=== PATIENT | male | born 1995 | race Caucasian/White ===

== ENCOUNTER 2017-03-11 09:49 | Emergency (ER) | payer MEDICAID ==
[~2017-03-11] VITALS: Ht 182.9 cm; Wt 93.4 kg
[~2017-03-11 09:49] MED LIST: OMEPRAZOLE20 MG PO; ZOFRAN ODT8 MG PO
[2017-03-11] MEDS ORDERED: GABAPENTIN300 MG PO (10:13)
[2017-03-11] MEDS ORDERED: ROBAXIN-750750 MG PO ×2 (10:13→10:17)
[2017-03-11] MEDS ORDERED: PERCOCET 5-3251 EACH PO (10:14)
== END 2017-03-11 10:30 | disposition home or self-care (01) ==
LOC: ED 09:49
DX: S22.9XXA Fracture of bony thorax, part unspecified, initial encounter for closed fracture (principal); F17.200 Nicotine dependence, unspecified, uncomplicated; Z79.899 Other long term (current) drug therapy; V89.2XXA Person injured in unspecified motor-vehicle accident, traffic, initial encounter
CPT/HCPCS: 99283

== ENCOUNTER 2017-07-15 11:48 | Emergency (ER) | payer MEDICAID ==
[~2017-07-15] VITALS: Ht 182.9 cm; Wt 93.4 kg
[~2017-07-15 11:48] MED LIST changes: +GABAPENTIN300 MG PO; +PERCOCET 5-3251 EACH PO; +ROBAXIN-750750 MG PO
[2017-07-15] MEDS ORDERED: NORCO 5-325 TA1 EACH PO (13:51)
== END 2017-07-15 15:33 | disposition home or self-care (01) ==
LOC: ED 11:48
DX: R07.89 Other chest pain (principal); F17.200 Nicotine dependence, unspecified, uncomplicated
CPT/HCPCS: 71045; 71046; 96372; 99283; J1170

== ENCOUNTER 2017-10-31 04:59 | Emergency (ER) | payer OTHER ==
[~2017-10-31] VITALS: Ht 180.3 cm; Wt 74.4 kg
[~2017-10-31 04:59] MED LIST changes: +NORCO 5-325 TA1 EACH PO
[2017-10-31] MEDS ORDERED: CEPHALEXIN500 MG PO (05:33)
[2017-10-31] MEDS ORDERED: ACETAMINOPHEN-1 EAC1 PO (05:33)
== END 2017-10-31 05:52 | disposition home or self-care (01) ==
LOC: ED 04:59
DX: K08.89 Other specified disorders of teeth and supporting structures (principal); F17.200 Nicotine dependence, unspecified, uncomplicated
CPT/HCPCS: 99283

== ENCOUNTER 2018-04-30 17:06 | Emergency (ER) | payer OTHER ==
[~2018-04-30] VITALS: Ht 180.3 cm; Wt 74.4 kg
[~2018-04-30 17:06] MED LIST changes: +ACETAMINOPHEN-1 EAC1 PO; +CEPHALEXIN500 MG PO; +NEURONTIN300 MG PO
--- OUTSIDE RECORDS SUMMARY | 2018-04-30 17:12 | XMS ---
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 Elmer has no Care Guidelines for this patient. Caroline VISIT COUNT (12 MO.) [facility] MOLLY [facility] TOTAL 5 NOTE: Visits indicate total known visits. 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 [place] TYPE: Emergency COMPLAINT: - FACIAL SWELLING DIAGNOSES: - OTHER SPECIFIED DISORDERS OF TEETH AND SUPPORTING - Nicotine dependence, unspecified, uncomplicated - Other specified disorders of teeth and supporting structures - Localized swelling, mass and lump, head 07/15/2017 11:[address] [facility] [place] TYPE: Emergency COMPLAINT: - CHEST PAIN DIAGNOSES: - Other chest pain - Chest pain, unspecified - Nicotine dependence, unspecified, uncomplicated [facility]2017 [facility] COMPLAINT: - Other - PAIN IN LEFT LEG DIAGNOSES: 0. Pain in left leg 1. Contusion of left lower leg, initial encounter 3. Nicotine dependence, cigarettes, uncomplicated 4. Cannabis use, unspecified, uncomplicated INPATIENT VISIT TRACKING (12 MO.) No inpatient visits to display in this time frame [email or web address]
== END 2018-04-30 17:30 | disposition home or self-care (01) ==
LOC: ED 17:06
DX: M79.671 Pain in right foot (principal)

== ENCOUNTER 2018-12-22 13:58 | Emergency (ER) | payer OTHER ==
[~2018-12-22] VITALS: Ht 180.3 cm; Wt 74.4 kg
--- OUTSIDE RECORDS SUMMARY | 2018-12-22 14:00 | XMS ---
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 Elmer has no Care Guidelines for this patient. Care History Medical/Surgical 05/01/2018 [facility] Care Recommendation: - Patient DOES NOT have a PCP. - Please refer patient to [facility] - - NO PCP letter sent to patient and phone call. - NEED UPDATED PHONE NUMBER FOR CONTACT This patient has had 5 or more Emergency Department visits in the last 12 months.\T\nbsp; Patient requires education on the scope and purpose of the ED as an acute care provider not a Primary Care Provider and should not be utilized for chronic conditions.\T\ nbsp; If patient returns to ED please contact Community Health WorkerBrittany at [phone]. These are guidelines and the provider should exercise clinical judgment when providing care. E.D. VISIT COUNT (12 MO.) 2 [facility] TOTAL 2 NOTE: Visits indicate total known visits. ED/UCC VISIT TRACKING (12 MO.) 12/22/2018 13:58 [facility] [place] TYPE: Emergency COMPLAINT: - CUT HAND 04/30/2018 17:07 [facility] [place] TYPE: Emergency COMPLAINT: - R FOOT PAIN/INJURY DIAGNOSES: - Pain in right foot INPATIENT VISIT TRACKING (12 MO.) No inpatient visits to display in this time frame [id number]
== END 2018-12-22 15:51 | disposition home or self-care (01) ==
LOC: ED 13:58
PROC: 0HQFXZZ Repair Right Hand Skin, External Approach (ICD-10-PCS; principal; 2018-12-22)
DX: S66.320A Laceration of extensor muscle, fascia and tendon of right index finger at wrist and hand level, initial encounter (principal); F17.200 Nicotine dependence, unspecified, uncomplicated; W25.XXXA Contact with sharp glass, initial encounter
CPT/HCPCS: 12002; 90471; 90715; 99283-25; 99406

== ENCOUNTER 2019-01-01 10:50 | Day surgery (SDC) | payer OTHER ==
[~2019-01-01] VITALS: Ht 180.3 cm; Wt 74.4 kg
[~2019-01-01 10:50] MED LIST changes: +MOBIC15 MG PO
--- NOTE | 2019-01-01 13:54 | NUR ---
01/01/19 1354 Fanny Arias 1346 PATIENT ARRIVES TO PACU SLEEPING, BUT AWAKENS WITH VERBAL STIMULI. ANSWERS QUESTIONS APPROPRIATELY, DENIES PAIN OR NAUSEA. ONLY C/O ARM FEELS "TINGLING." RESP EVEN AND UNLABORED, ROOM AIR SATS >95%.
[2019-01-01] MEDS ORDERED: HYDROCODON-ACE1 EA11 PO (13:59)
--- NOTE | 2019-01-04 06:59 | OR ---
[facility] [address], [place] [address] Signed DATE OF OPERATION: 01/01/2019 SURGEON: Jack Marrero MD PREOPERATIVE DIAGNOSIS: Extensor laceration, right hand. POSTOPERATIVE DIAGNOSES: Extensor laceration, right hand, with complete lacerations of the extensor digitorum communis and extensor indicis right hand. PROCEDURE PERFORMED: Repair of extensor digitorum communis and extensor indicis right hand. TEST DECK SUPERVISOR: None. ANESTHESIA: MAC with local. TOURNIQUET TIME: 50 minutes. BRIEF HISTORY: Zaid is a 23-year-old gentleman, who put his hand through a screen door glass and cut the backside. This was explored and repaired in the ER. There was thought to be a partial laceration; however, he had about a 30 degree extensor lag. Risks and benefits of exploration and repair were discussed with him and he elected to proceed. DESCRIPTION OF PROCEDURE: Once consent was obtained, he was taken to the operating room. After adequate anesthesia, he was placed on operating room table. A well-padded proximal arm tourniquet was placed. The arm was prepped and draped in a standard sterile fashion, exsanguinated using Esmarch bandage. Tourniquet inflated to 200 mmHg. The initial laceration was opened up and the cut ends of the two distal portions of the tendons were easily identifiable. The extensor indicis was found proximally quite quickly. However, the extensor digitorum communis we had trouble finding. Using a tendon retriever, we reached up the canal and unable to retrieve it. We then made another incision proximally and found the tendon and brought it back through in its proper position. Both tendons were then repaired using a modified Todd stitch with 4-0 suture. A six Electronically Signed By: JACK MARRERO MD 01/04/19 0659 PATIENT NAME: ZAID GAXIOLA OPERATIVE REPORT DATE OF : 89 REPORT #: [id number] PHYSICIAN: JACK MARRERO MD PCP: PHILIP MCDONOUGH DO REPORT IS CONFIDENTIAL AND NOT TO BE RELEASED WITHOUT AUTHORIZATION [facility] [address], [place] [address] Signed strand repair was done on both and then a running paratenon with 5-0 nylon was done. The tendons were independently active and intact. There was no gaping. Wounds were then copiously irrigated with antibiotic solution, closed with 3-0 Monocryl for the extensor retinaculum, and 3-0 nylon for the skin. Wounds were dressed with bacitracin, Adaptic, 4 x 8s, and gauze. Field blocks with 8 mL of 0.25% plain Marcaine were placed prior to this. The wounds were then dressed with sterile cast padding and two digit extensor splint with plaster. He tolerated the procedure well. All sponge, needle, and instrument counts were correct. Jack Marrero MD BA/EDYTA /[id number] Copies: ~ Electronically Signed By: JACK MARRERO MD 01/04/19 0659 PATIENT NAME: KHALIDAZAID OPERATIVE REPORT DATE OF : [birth year] REPORT #: [id number] PHYSICIAN: JACK MARRERO MD PCP: PHILIP MCDONOUGH DO REPORT IS CONFIDENTIAL AND NOT TO BE RELEASED WITHOUT AUTHORIZATION
== END 2019-01-01 14:25 | disposition home or self-care (01) ==
LOC: DS 10:50 → OPS 10:50 → DS 13:15 → OPS 13:15
PROVIDERS: Specialist
PROC: 0LQ70ZZ Repair Right Hand Tendon, Open Approach (ICD-10-PCS; principal; 2019-01-01 13:15)
DX: S66.320A Laceration of extensor muscle, fascia and tendon of right index finger at wrist and hand level, initial encounter (principal); F17.210 Nicotine dependence, cigarettes, uncomplicated; F12.90 Cannabis use, unspecified, uncomplicated; Z79.899 Other long term (current) drug therapy; W25.XXXA Contact with sharp glass, initial encounter
CPT/HCPCS: 01830; J0690; J2704; J3010; J7120

== ENCOUNTER 2019-09-21 21:18 | Emergency (ER) | payer OTHER ==
[~2019-09-21] VITALS: Ht 180.3 cm; Wt 77.1 kg
--- OUTSIDE RECORDS SUMMARY | ~2019-09-21 | XMS | Clinical Summary ---
Demographics + + + | Address | [address] | | | [place] [address] | + + + | Home Phone | | + + + | Preferred Language | Unknown | + + + | Marital Status | Single | + + + | Bahai Affiliation | Unknown | + + + | Race | Unknown | + + + | Ethnic Group | Unknown | + + + Author + + + | Author | [facility] | | | and [place] | + + + | Organization | [facility] | | | and [place] | + + + | Address | Unknown | + + + | Phone | Unavailable | + + + Support + + + + + | Name | Relationship | Address | Phone | + + + + + | Cheko Simmons | ECON | [address] | | | | | [place] | | | | | [phone] | | + + + + + Care Team Providers + +------+ + | Care Corrugated Sheet Material Sheeter Name | Role | Phone | + +------+ + | Sigifredo Pascual DO | PCP | | + +------+ + Allergies No Known Allergies Medications + + + +---------+------+------+-------+ | Medication | Sig | Dispensed | Refills | Star | End | Statu | | | | | | t | Date | s | | | | | | Date | | | + + + +---------+------+------+-------+ | meloxicam (MOBIC) | Take 15 mg by mouth | | 0 | 08/1 | | Activ | | 15 mg tablet | Daily. | | | 4/20 | | e | | | | | | 19 | | | + + + +---------+------+------+-------+ | methocarbamol | Take 1-2 tablets by | | 0 | 02/0 | | Activ | | (ROBAXIN) 750 mg | mouth every 4 hours | | | 4/20 | | e | | tablet | as needed. | | | 19 | | | + + + +---------+------+------+-------+ | varenicline | Take 0.5 mg by mouth | 1 | 0 | 09/0 | | Activ | | (CHANTIX STARTING | once daily on days | tablet | | 5/20 | | e | | MONTH ISAAC) 0.5 MG X | 1-3 and 0.5 mg twice | | | 19 | | | | 11 & 1 MG X 42 | daily on days 4-7, | | | | | | | tablet | then 1 mg twice | | | | | | | | daily. | | | | | | + + + +---------+------+------+-------+ Active Problems No known active problems Family History + + +------+ + | Medical History | Relation | Name | Comments | + + +------+ + | No known problems | Father | | | + + +------+ + | No known problems | Mother | | | + + +------+ + | Cancer | Other | | | + + +------+ + | Diabetes | Other | | | + + +------+ + + +------+--------+ + | Relation | Name | Status | Comments | + +------+--------+ + | Father | | Alive | | + +------+--------+ + | Mother | | Alive | | + +------+--------+ + | Other | | | Grandfather | + +------+--------+ + Social History + +-------+ +--------+------+ | Tobacco Use | Types | Packs/Day | Years | Date | | | | | Used | | + +-------+ +--------+------+ | Current Every Day | | 0.5 | 7 | | | Smoker | | | | | + +-------+ +--------+------+ + +---+---+---+ | Smokeless Tobacco: | | | | | Never Used | | | | + +---+---+---+ + + +---------+ + | Alcohol Use | Drinks/Week | oz/Week | Comments | + + +---------+ + | Not Currently | | | | + + +---------+ + + + + | Sex Assigned at | Date Recorded | | | | + + + | Not on file | | + + + + + + + | Job Start Date | Occupation | Industry | + + + + | Not on file | Not on file | Not on file | + + + + + + + + | Travel History | Travel Start | Travel End | + + + + + + | No recent travel history available. | + + Last Filed Vital Signs + + + + + | Vital Sign | Reading | Time Taken | Comments | + + + + + | Blood Pressure | 130/86 | 12/31/2018 11:12 AM | | | | | PDT | | + + + + + | Pulse | 72 | 12/31/2018 11:12 AM | | | | | PDT | | + + + + + | Temperature | - | - | | + + + + + | Respiratory Rate | 16 | 12/31/2018 11:12 AM | | | | | PDT | | + + + + + | Oxygen Saturation | - | - | | + + + + + | Inhaled Oxygen | - | - | | | Concentration | | | | + + + + + | Weight | 74.8 kg (165 lb) | 12/31/2018 11:12 AM | | | | | PDT | | + + + + + | Height | 180.3 cm (5' 11") | 12/31/2018 11:12 AM | | | | | PDT | | + + + + + | Body Mass Index | 23.01 | 12/31/2018 11:12 AM | | | | | PDT | | + + + + + Plan of Treatment + + + + + | Health Maintenance | Due Date | Last Done | Comments | + + + + + | Vaccine: | | | | | Pneumococcal 19-64 | 1 | | | | (1 of 1 - PPSV23) | | | | + + + + + | Vaccine: Influenza | | | | | (Season Ended) | 0 | | | + + + + + | Vaccine: | | 12/22/2018, 06/04/2011, | | | Dtap/Tdap/Td (9 - | 9 | 05/30/2008, Additional history | | | Td) | | exists | | + + + + + Results Not on filefrom Last 3 Months Insurance + +--------+ +--------+ +---------+--------+ | Payer | Benefi | Subscriber | Effect | Phone | Address | Type | | | t Plan | ID | marquise | | | | | | / | | Dates | | | | | | Group | | | | | | + +--------+ +--------+ +---------+--------+ | [employer] | [employer] | [id number] | 07/28/19 | [phone] | | Medica | | MEDICAID HMO | HEALTH | | 19-Pre | 1 | | id | | | MDCD | | sent | | | | | | [place]MO [place] | | | | | | + +--------+ +--------+ +---------+--------+ + +--------+ +--------+ + + | Guarantor Name | Accoun | Relation to | Date | Phone | Billing Address | | | t Type | Patient | of | | | | | | | | | | + +--------+ +--------+ + + | Pelon Simmons | Person | Self [birth year] | [address] | | | al/Fam | | 1995 | [phone] | [place] [address] | | | penny | | | 9 (Home) | | + +--------+ +--------+ + + Advance Directives + + + + + | Type | Date Recorded | Patient | Explanation | | | | Hourly Team Members | | + + + + + | Power of | | | | | Biomedical Engineering Technician | | | | + + + + + | Advance | | | | | Directive | | | | + + + + +
--- OUTSIDE RECORDS SUMMARY | ~2019-09-21 | XMS | Encounter Summary ---
Demographics + + + | Address | [address] | | | [place] [address] | + + + | Home Phone | | + + + | Preferred Language | Unknown | + + + | Marital Status | Single | + + + | Church Affiliation | Unknown | + + + | Race | Unknown | + + + | Ethnic Group | Unknown | + + + Author + + + | Author | [facility] | | | and [place] | + + + | Organization | [facility] | | | and [place] | + + + | Address | Unknown | + + + | Phone | Unavailable | + + + Support + + + + + | Name | Relationship | Address | Phone | + + + + + | Cheko Simmons | ECON | [address] | | | | | [place] | | | | | [phone] | | + + + + + Care Team Providers + +------+ + | Care Customer Services Coordinator Name | Role | Phone | + +------+ + PCP | Unavailable | + +------+ + Encounter Details +--------+ + + + + | Date | Type | Department | Care Team | Description | +--------+ + + + + | 11/10/ | Emergency | [facility] | Ray Remy, | [facility] | | 2002 - | | [facility] | [phone] | | | | | [facility] | [place], | | | 11/11/ | | [address] | [place] [address] | | | 2002 | | [place], [place] | [phone] | | | | | [address] | | | | | | [phone] | | | +--------+ + + + + Social History + +-------+ +--------+------+ | Tobacco Use | Types | Packs/Day | Years | Date | | | | | Used | | + +-------+ +--------+------+ | Never Assessed | | | | | + +-------+ +--------+------+ + + + | Sex Assigned at [...] recent travel history available. | + + documented as of this encounter Plan of Treatment Not on filedocumented as of this encounter Visit Diagnoses + + | Diagnosis | + + | Headache(784.0) Headache | + + documented in this encounter"
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
--- OUTSIDE RECORDS SUMMARY | ~2019-09-21 | XMS | Encounter Summary ---
Demographics + + + | Address | [address] | | | [place] [address] | + + + | Home Phone | | + + + | Preferred Language | Unknown | + + + | Marital Status | Single | + + + | Confucianist Affiliation | Unknown | + + + | Race | Unknown | + + + | Ethnic Group | Unknown | + + + Author + + + | Author | [facility] | | | and [place] | + + + | Organization | [facility] | | | and [...] [place] | | | | | [address] | | + + + + + Care Team Providers + +------+ + | Care Collision Worker Name | Role | Phone | + [...] Александр ROJAS | | | | | [address] | [place] [address] | | | | | [place] [address] | | | | | | [phone] | | | +--------+ + + + [...]
--- OUTSIDE RECORDS SUMMARY | ~2019-09-21 | XMS | Encounter Summary ---
Demographics + + + | Address | [address] | | | [place] [address] | + + + | Home Phone | | + + + | Preferred Language | Unknown | + + + | Marital Status | Single | + + + | Orthodoxy Affiliation | Unknown | + + + | Race | Unknown | + + + | Ethnic Group | Unknown | + + + Author + + + | Author | [facility] | | | and [place] | + + + | Organization | [facility] | | | and [place] [...] [place] | | | | | [address] | | + + + + + Care Team Providers + +------+ + | Care Apartment Maintenance Supervisor Name | Role | Phone | + +------+ + | Brett Lewis MD | PCP | | + +------+ + Encounter Details +--------+ + + + + | Date | Type | Department | Care Team | Description | +--------+ + + + + | 12/14/ | Abstract | [facility] | Provider, | | | 2018 | | [address]YSIATRY [address] | [address] | | | | | [address] | Александр Brandt. BOB | | | | | [place] | [place] [address] | | | | | [address] | | | | | | [phone] | | | +--------+ + + + + Social History + +-------+ +--------+------+ | Tobacco Use | Types | Packs/Day | Years | Date | | | | | Used | | + +-------+ +--------+------+ | Never Smoker | | | | | + [...] filedocumented as of this encounter Visit Diagnoses Not on filedocumented in this encounter"
--- OUTSIDE RECORDS SUMMARY | ~2019-09-21 | XMS | Encounter Summary ---
Demographics + + + | Address | [address] | | | [place] [address] | + + + | Home Phone | | + + + | Preferred Language | Unknown | + + + | Marital Status | Single | + + + | Yazdanism Affiliation | Unknown | + + + | Race | Unknown | + + + | Ethnic Group | Unknown | + + + Author + + + | Author | [facility] | | | and [place] | + + + | Organization | [facility] | | | and [place] | + + + | Address | Unknown | + + + | Phone | Unavailable | + + + Support + + + + + | Name | Relationship | Address | Phone | + + + + + | Cheko Simmons | ECON | [address] | | | | | [place], [place] | | | | | [address] | | + + + + + Care Team Providers + +------+ + | Care Small Stock Facer Name | Role | Phone | + +------+ + PCP | Unavailable | + +------+ + Encounter Details +--------+ + + + + | Date | Type | Department | Care Team | Description | +--------+ + + + + | 01/14/ | Hospital | [facility] | Reena, | Single liveborn, | | 1994 - | Encounter | MEDICAL CENTER NICU | [address] | born in hospital, | | | | [address] | [address] [place], [place] | delivered without | | 01/[birth year]/ | | [place], [place] | [address] | mention of | | 1994 | | [address] | | delivery | | | | [phone] | | | +--------+ + + + [...] + | Diagnosis | + + | Single liveborn, born in hospital, delivered without mention of delivery | + + documented in this encounter"
--- OUTSIDE RECORDS SUMMARY | ~2019-09-21 | XMS | Encounter Summary ---
Demographics + + + | Address | [address] | | | [place] [address] | + + + | Home Phone | | + + + | Preferred Language | Unknown | + + + | Marital Status | Single | + + + | Synagogue Affiliation | Unknown | + + + | Race | Unknown | + + + | Ethnic Group | Unknown | + + + Author + + + | Author | [facility] | | | and [place] | + + + | Organization | [facility] | | | and [place] [...] [place] | | | | | [address] | | + + + + + Care Team Providers + +------+ + | Care Senior Boiler Operator Name | Role | Phone | + +------+ + | Sigifredo Pascual DO | PCP | | + +------+ + Encounter Details +--------+ + + + + | Date | Type | Department | Care Team | Description | +--------+ + + + + | 12/31/ | Hospital | [facility] | Eugenie Salazar | Spondylolisthesis at | | 2019 | Encounter | MED CTR XRAY [address] | [address] | L5-S1 level | | | | [place] | [facility] | | | | | [place] [address] | [address] [place] | | | | | [phone] | [address] | | | | | | | [...] + + | Performing | Address | City/State[facility] | Phone Number | | Organization | | | | + +---------+ + + | [facility] | | | | + +---------+ + + documented in this encounter Visit Diagnoses + + | Diagnosis | + + | Spondylolisthesis at L5-S1 level | + + documented in this encounter"
--- OUTSIDE RECORDS SUMMARY | ~2019-09-21 | XMS | Encounter Summary ---
Demographics + + + | Address | [address] | | | [place] [address] | + + + | Home Phone | | + + + | Preferred Language | Unknown | + + + | Marital Status | Single | + + + | Sabianism Affiliation | Unknown | + + + | Race | Unknown | + + + | Ethnic Group | Unknown | + + + Author + + + | Author | [facility] | | | and [place] | + + + | Organization | [facility] | | | and [place] | + [...] [place] | | | | | [address] | | + + + + + Care Team Providers + +------+ + | Care Brush Holder Assembler Name | Role | Phone | + +------+ + | Sigifredo Pascual DO | PCP | | + +------+ + Reason for Visit +---------+ + | Reason | Comments | +---------+ + | Results | | +---------+ + Encounter Details +--------+ + + + + | Date | Type | Department | Care Team | Description | +--------+ + + + + | 01/05/ | Telephone | [facility] [place] | Eugenie Salazar | Results | | 2019 | | [address]YSIATRY [address] | [address] | | | | | [address] | [facility] | | | | | [place] [address] | [address] [place] | | | | | [address] | [address] | | | | | [phone] | | | +--------+ + + + [...]
[~2019-09-21 21:18] MED LIST changes: +HYDROCODON-ACE1 EA11 PO
--- OUTSIDE RECORDS SUMMARY | 2019-09-21 21:22 | XMS ---
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 Care History Medical/Surgical 05/01/2018 [facility] Care Recommendation: - Patient DOES NOT have a PCP. - Please refer patient to [facility] - - NO PCP letter sent to [...] ED please contact Community Health WorkerBrittany at [phone]. These are guidelines and the provider should exercise clinical judgment when providing care. E.D. VISIT COUNT (12 MO.) 2 [facility] TOTAL 2 NOTE: Visits indicate total known visits. ED/UCC VISIT TRACKING (12 MO.) 09/21/2019 21:19 [facility] [place] TYPE: Emergency COMPLAINT: - HEADACHE 12/22/2018 13:58 [facility] [place] TYPE: Emergency COMPLAINT: - CUT HAND DIAGNOSES: - Contact with sharp glass, initial encounter - Laceration of extensor muscle, fascia and tendon of right ind - Nicotine dependence, unspecified, uncomplicated - Laceration without foreign body of right hand, initial encoun INPATIENT VISIT TRACKING (12 MO.) No inpatient visits to display in this time frame [id number]
== END 2019-09-22 00:07 | disposition home or self-care (01) ==
LOC: ED 21:18
DX: G43.909 Migraine, unspecified, not intractable, without status migrainosus (principal); F17.200 Nicotine dependence, unspecified, uncomplicated
CPT/HCPCS: 70450; 96374; 96375; 99284-25; J1200; J1885; J2765; J7030

== ENCOUNTER 2019-11-19 18:24 | Emergency (ER) | payer SELFPAY ==
[~2019-11-19] VITALS: Ht 180.3 cm; Wt 77.1 kg
--- OUTSIDE RECORDS SUMMARY | ~2019-11-19 | XMS | Encounter Summary ---
Demographics + + + | Address | [address] | | | [place] [address] | + + + | Home Phone | | + + + | Preferred Language | Unknown | + + + | Marital Status | Single | + + + | Scientologist Affiliation | Unknown | + + + | Race | Unknown | + + + | Ethnic Group | Unknown | + + + Author + + + | Author | [facility] | | | and [place] | + + + | Organization | [facility] | | | and [place] | [...] [place] | | | | | [address] | | + + + + + Care Team Providers + +------+ + | Care Games Manager Name | Role | Phone | + +------+ + | Brett Lewis MD | PCP | | + +------+ + Encounter Details +--------+ + + + + | Date | Type | Department | Care Team | Description | +--------+ + + + + | 08/07/ | Imaging | [facility] | Provider, | | | 2019 | Exam | MED CTR EXTERNAL | [address] | | | | | IMAGING [address] | Александр ROJAS | | | | | [address] | [place] [address] | | | | | [place] [address] | | | | | | [phone] | | | +--------+ + + + [...] on file | | + + + documented as of this encounter Plan of Treatment Not on filedocumented as of this encounter Procedures + +--------+ + + + | Procedure Name | Priori | Date/Time | Associated Diagnosis | Comments | | | ty | | | | + +--------+ + + + | MRI LUMBAR SPINE WO | Routin | 07/10/2018 | | Results for this | | CONTRAST | e | 12:55 PM | | procedure are in the | | | | PDT | | results section. | + +--------+ + + + documented in this encounter Results MRI Lumbar Spine wo Contrast (07/10/2018 12:55 PM PDT) + + | Specimen | + + | | + + + + + | Narrative | Performed At | + + + | External films for comparison only | [facility] | | | | | No results will be in the chart. | | + + + + +---------+ + + | Performing | Address | City/State/Zipcode | Phone Number | | Organization | | | | + +---------+ + + | [facility] | | | | + +---------+ + + documented in this encounter Visit Diagnoses Not on filedocumented in this encounter"
--- OUTSIDE RECORDS SUMMARY | ~2019-11-19 | XMS | Encounter Summary ---
Demographics + + + | Address | [address] | | | [place] [address] | + + + | Home Phone | | + + + | Preferred Language | Unknown | + + + | Marital Status | Single | + + + | Orthodoxy Affiliation | Unknown | + + + | Race | Unknown | + + + | Ethnic Group | Unknown | + + + Author + + + | Author | [facility] | | | and [place] | + + + | Organization | [facility] | | | and [...] [place] | | | | | [address] | | + + + + + Care Team Providers + +------+ + | Care Asphalt Smoother Name | Role | Phone | + +------+ + | Sigifredo Pascual DO | PCP | | + +------+ + Reason for Visit +---------+--------+ + | Reason | Onset | Comments | | | Date | | +---------+--------+ + | Results | 01/05/ | | | | 2019 | | +---------+--------+ + Encounter Details +--------+ + + + + | Date | Type | Department | Care Team | Description | +--------+ + + + + | 01/05/ | Telephone | [facility] [place] | Eugenie Salazar | Results | | 2019 | | [address]AT[address] | [address] | | | | | [address] | [address] [facility] | | | | | [place] | [address] [place], [place] | | | | | [address] | [address] | | | | | [phone] | | | +--------+ + + + [...] + + documented as of this encounter Miscellaneous Notes Telephone Encounter - Willi Ross Medical Assistant - 01/05/2019 9:40 AM PDTPatient has been notified of x-ray results, and injection denial. Patient will contact Sulma martini. 9:4 1 AM PDTTelephone Encounter - Willi Ross Medical Assistant - 01/05/2019 9:40 AM PDT---- - Message from Eugenie Salazar PA-C sent at 01/01/2019 11:56 PDT ----- Please let patient know that his lumbar x-rays show that the slip in his vertebrae is stabl e and does not move on flexion and extension. documented in this encounter Plan of Treatment Not on filedocumented as of this encounter Visit Diagnoses Not on filedocumented in this encounter"
--- OUTSIDE RECORDS SUMMARY | ~2019-11-19 | XMS | Encounter Summary ---
Demographics + + + | Address | [address] | | | [place] [address] | + + + | Home Phone | | + + + | Preferred Language | Unknown | + + + | Marital Status | Single | + + + | Temple Affiliation | Unknown | + + + | Race | Unknown | + + + | Ethnic Group | Unknown | + + + Author + + + | Author | [facility] | | | and [place] | + + + | Organization | [facility] | | | and [place] [...] [place] | | | | | [address] | | + + + + + Care Team Providers + +------+ + | Care Chair Inspector And Leveler Name | Role | Phone | + +------+ + | Sigifredo Pascual DO | PCP | | + +------+ + Encounter Details +--------+ + + + + | Date | Type | Department | Care Team | Description | +--------+ + + + + | 12/31/ | Hospital | [facility] | Eugenie Salazar | Spondylolisthesis at | | 2019 | Encounter | MED CTR XRAY [address] | [address] | L5-S1 level | | | | [place] | [facility] | | | | | [place] [address] | [address] [place] | | | | | [phone] | [address] | | | | | | | | +--------+ + + + [...] + + documented as of this encounter Medications at Time of Discharge + + + +---------+ + + | Medication | Sig | Dispensed | Refills | Start | End Date | | | | | | Date | | + + + +---------+ + + | meloxicam (MOBIC) | Take 15 mg by mouth | | 0 | 12/10/19 | | | 15 mg tablet | Daily. | | | 19 | | + + + +---------+ + + | methocarbamol | Take 1-2 tablets by | | 0 | 06/01/19 | | | (ROBAXIN) 750 mg | mouth every 4 hours | | | 19 | | | tablet | as needed. | | | | | + + + +---------+ + + | varenicline | Take 0.5 mg by mouth | 1 | 0 | 01/01/20 | | | (CHANTIX STARTING | once daily on days | tablet | | 19 | | | MONTH ISAAC) 0.5 MG X | 1-3 and 0.5 mg twice | | | | | | 11 & 1 MG X 42 | daily on days 4-7, | | | | | | tablet | then 1 mg twice | | | | | | | daily. | | | | | + + + +---------+ + + documented as of this encounter Plan of Treatment Not on filedocumented as of this encounter Procedures + +--------+ + + + | Procedure Name | Priori | Date/Time | Associated Diagnosis | Comments | | | ty | | | | + +--------+ + + + | XR LUMBAR SPINE 2 OR | Routin | 12/31/2018 | Spondylolisthesis | Results for this | | 3 VW | e | 12:32 PM | at L5-S1 level | procedure are in the | | | | PDT | | results section. | + +--------+ + + + documented in this encounter Results XR Lumbar Spine 2 [...] | Procedure Note | + + | Gustaob, Skyler Results In - 12/31/2018 2:58 PM PDT [...] + + | Spondylolisthesis at L5-S1 level | + + documented in this encounter"
--- OUTSIDE RECORDS SUMMARY | ~2019-11-19 | XMS | Encounter Summary ---
Demographics + + + | Address | [address] | | | [place] [address] | + + + | Home Phone | | + + + | Preferred Language | Unknown | + + + | Marital Status | Single | + + + | Mu-Ism Affiliation | Unknown | + + + | Race | Unknown | + + + | Ethnic Group | Unknown | + + + Author + + + | Author | [facility] | | | and [place] | + + + | Organization | [facility] | | | and [place] | + + + | Address | Unknown | + + + | Phone | Unavailable | + + + Support + + + + + | Name | Relationship | Address | Phone | + + + + + | Cheko Simmons | ECON | [address] | | | | | [place] | | | | | [address] | | + + + + + Care Team Providers + +------+ + | Care Optometric Technologist Name | Role | Phone | + +------+ + PCP | Unavailable | + +------+ + Encounter Details +--------+ + + + + | Date | Type | Department | Care Team | Description | +--------+ + + + + | 11/10/ | Emergency | [facility] | Ray Remy, | [place] | | 2002 - | | MEDICAL CENTER | [address] | | | | | EMERGENCY CENTER | [address], | | | 11/11/ | | [address] | [place] [address] | | | 2002 | | [place], [place] | [phone] | | | | | [address] | | | | | | [phone] | | | +--------+ + + + [...]
--- OUTSIDE RECORDS SUMMARY | ~2019-11-19 | XMS | Clinical Summary ---
Demographics + + + | Address | [address] | | | [place] [address] | + + + | Home Phone | | + + + | Preferred Language | Unknown | + + + | Marital Status | Single | + + + | Mandaen Affiliation | Unknown | + + + | Race | Unknown | + + + | Ethnic Group | Unknown | + + + Author + + + | Author | [facility] | | | and [place] | + + + | Organization | [facility] | | | and [place] [...] [place] | | | | | [address] | | + + + + + Care Team Providers + +------+ + | Care Medical Language Specialist Name | Role | Phone | + [...] on file | | + + + Last Filed Vital Signs + [...] Health Maintenance | Due Date | Last | Comments | | | | Done | | + + + + + | Hepatitis C | | | | | Screening | 5 | | | + + + + + | Med Mgmt: BUN | | | | | | 5 | | | + + + + + | Med Mgmt: Cr | | | | | | 5 | | | + + + + + | Medication | | | | | Management | 5 | | | + + + + + | Vaccine: | | | | | Pneumococcal 19-64 | 1 | | | | (1 of 1 - PPSV23) | | | | + + + + + | Vaccine: Influenza | | | | | (#1) | 0 | | | + + + + + | Vaccine: | | 12/23/19 | | | Dtap/Tdap/Td (9 - | 9 | 19, | | | Td) | | 06/04/19 | | | | | 12, | | | | | 05/30/19 | | | | | 09, | | | | | Addition | | | | | al | | | | | history | | | | | exists | | + + [...] | [employer] | [facility] | [id number] | 07/28/19 | [phone] | | Medica [...] | Self | [birth year] | [address] | | | al/Fam | | 1994 | [phone] | [place] [address] | | | penny | | | 9 (Home) | | + +--------+ +--------+ + + Advance Directives + + + + + | Type | Date Recorded | Patient | Explanation | | | | Hydrotechnical Specialist | | + + + + + | Power of | | | | | Senior Media Buyer | | | | + + + + + | Advance | | | | | Directive | | | | + + + + +
--- OUTSIDE RECORDS SUMMARY | ~2019-11-19 | XMS | Encounter Summary ---
Demographics + + + | Address | [address] | | | [place] [address] | + + + | Home Phone | | + + + | Preferred Language | Unknown | + + + | Marital Status | Single | + + + | Anglican Affiliation | Unknown | + + + | Race | Unknown | + + + | Ethnic Group | Unknown | + + + Author + + + | Author | [facility] | | | and [place] | + + + | Organization | [facility] | | | and [...] [place] | | | | | [address] | | + + + + + Care Team Providers + +------+ + | Care Manufacturing Engineering Director Name | Role | Phone | + [...] | PH[address]SIATRY [address] | [address] | | | | | [address] | Александр Brandt. BOB | | | | | [place] | [place] [address] | | | | | [address] | | | | | | [phone] | | | +--------+ + + + [...]
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
--- OUTSIDE RECORDS SUMMARY | ~2019-11-19 | XMS | Encounter Summary ---
Demographics + + + | Address | [address] | | | [place] [address] | + + + | Home Phone | | + + + | Preferred Language | Unknown | + + + | Marital Status | Single | + + + | Mandaeism Affiliation | Unknown | + + + | Race | Unknown | + + + | Ethnic Group | Unknown | + + + Author + + + | Author | [facility] | | | and [place] | + + + | Organization | [facility] | | | and [place] [...] [place], [place] | | | | | [address] | | + + + + + Care Team Providers + +------+ + | Care Machine Inker Name | Role | Phone | + +------+ + PCP | Unavailable | + +------+ + Encounter Details +--------+ + + + + | Date | Type | Department | Care Team | Description | +--------+ + + + + | 01/14/ | Hospital | [facility] | Reena, | Single liveborn, | | 1994 - | Encounter | MEDICAL CENTER NICU | [address] | born in hospital, | | | | [address] | [address] [place], [place] | delivered without | | [birth year]/ | | [place], [place] | [address] | mention of | | 1994 | | [address] | | delivery | | | | [phone] | | | +--------+ + + + [...]
[2019-11-19] MEDS ORDERED: MELOXICAM7.5 MG PO (18:36)
[2019-11-19] MEDS ORDERED: LYRICA50 MG PO (18:36)
[2019-11-19] MEDS ORDERED: DOXYCYCLINE HY100 MG PO (19:42)
[2019-11-19] MEDS ORDERED: ULTRAM50 MG PO (19:42)
== END 2019-11-19 19:50 | disposition home or self-care (01) ==
LOC: ED 18:24
DX: N45.1 Epididymitis (principal); F17.200 Nicotine dependence, unspecified, uncomplicated
CPT/HCPCS: 81001; 87088; 87491; 87591; 99284

== ENCOUNTER 2020-03-15 11:30 | Emergency (ER) | payer OTHER ==
[~2020-03-15] VITALS: Ht 180.3 cm; Wt 88.8 kg
[~2020-03-15 11:30] MED LIST changes: +DOXYCYCLINE HY100 MG PO; +LYRICA50 MG PO; +MELOXICAM7.5 MG PO; +ULTRAM50 MG PO
--- NOTE | 2020-03-15 22:38 | EKG ---
[facility] [address] [place], [place] [address] Signed Sinus tachycardia Otherwise normal ECG No previous ECGs available Confirmed by CECILIA APONTE MD ([id number] on 03/15/2020 10:38:39 PM Electronically Signed By: CECILIA APONTE MD 03/15/20 [id number] PATIENT NAME: ZAID GAXIOLA MAIA Electrocardiogram DATE OF : [birth year] PHYSICIAN: CECILIA APONTE MD REPORT #: [id number] REPORT IS CONFIDENTIAL AND NOT TO BE RELEASED WITHOUT AUTHORIZATION
== END 2020-03-15 13:20 | disposition home or self-care (01) ==
LOC: ED 11:30
DX: G25.1 Drug-induced tremor (principal); R53.1 Weakness; T50.995A Adverse effect of other drugs, medicaments and biological substances, initial encounter; F17.200 Nicotine dependence, unspecified, uncomplicated
CPT/HCPCS: 93005; 93010; 96374; 96375; 99283-25; J2060; J2405; J7030

== ENCOUNTER 2020-10-03 11:03 | Emergency (ER) | payer OTHER ==
[~2020-10-03] VITALS: Ht 180.3 cm; Wt 99.8 kg
[2020-10-03] MEDS ORDERED: NARCAN4 MG (11:30)
[2020-10-03] MEDS ORDERED: METHADONE H5 MG/5 ML PO (11:39)
[2020-10-03] MEDS ORDERED: INDOMETHACIN25 MG PO (13:06)
== END 2020-10-03 13:16 | disposition home or self-care (01) ==
LOC: ED 11:03
DX: M10.9 Gout, unspecified (principal); F17.200 Nicotine dependence, unspecified, uncomplicated; Z79.899 Other long term (current) drug therapy
CPT/HCPCS: 73130; 99283-25

== ENCOUNTER 2022-07-25 10:41 | Emergency (ER) | payer OTHER ==
[~2022-07-25] VITALS: Ht 180.3 cm; Wt 99.8 kg
[~2022-07-25 10:41] MED LIST changes: +BACTRIM DS TAB1 EACH PO; +INDOMETHACIN25 MG PO; +LASIX20 MG PO; +METHADONE H5 MG/5 ML PO; +NARCAN4 MG
[2022-07-25] MEDS ORDERED: ONDANSETRON ODT8 MG PO (12:02)
[2022-07-25] MEDS ORDERED: BUPRENORPHINE HC8 MG SL (12:02)
== END 2022-07-25 12:14 | disposition home or self-care (01) ==
LOC: ED 10:41
DX: F11.23 Opioid dependence with withdrawal (principal); F17.200 Nicotine dependence, unspecified, uncomplicated
CPT/HCPCS: 99284; A9270